=== PATIENT | male | born 1985 | race Two or more races ===

== ENCOUNTER 2016-12-02 19:38 | Emergency (ER) | payer OTHER ==
[~2016-12-02] VITALS: Ht 180.3 cm; Wt 77.1 kg
--- NOTE | 2016-12-02 22:00 | NUR ---
Crutches dispensed. Pt instructed on proper use of crutches. Patient able to demonstrate correct use of crutches.
--- NOTE | 2016-12-02 22:17 | NUR ---
Patient discharged to home in stable condition. Written and verbal after care instructions given. Patient verbalizes understanding of instruction.
[2016-12-02 22:19] VITALS: BP 112/69
== END 2016-12-02 22:20 | disposition home or self-care (01) ==
LOC: ER 19:40
DX: M25.572 Pain in left ankle and joints of left foot (principal)
CPT/HCPCS: 73610-TC; A4606; Z7610

== ENCOUNTER 2018-09-21 06:54 | Emergency (ER) | payer OTHER ==
[~2018-09-21] VITALS: Ht 180.3 cm; Wt 78.0 kg
[2018-09-21 07:04] VITALS: BP 111/74
== END 2018-09-21 07:25 | disposition home or self-care (01) ==
LOC: ER 06:55
DX: K13.79 Other lesions of oral mucosa (principal)
CPT/HCPCS: Z7502

== ENCOUNTER 2021-05-29 13:55 | Emergency (ER) | payer OTHER ==
[~2021-05-29] VITALS: Ht 177.8 cm; Wt 77.1 kg
[2021-05-29 14:42] VITALS: BP 110/72
[2021-05-29] MEDS ORDERED: CYCLOBENZAPRINE 10 MG TABLET ONE (15:25)
[2021-05-29] MEDS ORDERED: KETOROLAC TROMETHAMINE INJ 30 MG/ML VIAL ONE (15:25)
[2021-05-29] MEDS ORDERED: KETOROLAC TROMETHAMINE INJ 30 MG/ML VIAL IM ONE (15:30)
[2021-05-29] MEDS ORDERED: CYCLOBENZAPRINE 10 MG TABLET PO ONE (15:30)
[2021-05-29] MEDS ORDERED: CYCL5TAB PO (16:39)
[2021-05-29] MEDS ORDERED: IBUP-1957 PO (16:39)
--- NOTE | 2021-05-29 16:43 | NUR ---
Patient discharged to home in stable condition. Written and verbal after care instructions given. Patient verbalizes understanding of instruction.
== END 2021-05-29 16:43 | disposition home or self-care (01) ==
LOC: ER 13:56
DX: M54.32 Sciatica, left side (principal); Z79.1 Long term (current) use of non-steroidal anti-inflammatories (NSAID); Z79.899 Other long term (current) drug therapy
CPT/HCPCS: 96372; 99283; J1885